=== PATIENT | male | born 1960 | race Caucasian/White ===

== ENCOUNTER 2017-01-23 13:56 | Day surgery (SDC) | payer BC ==
[~2017-01-23] VITALS: Ht 177.8 cm; Wt 120.2 kg
[~2017-01-23 13:56] MED LIST: ADVIL200 MG PO; HUMALOG100 UNIT/2 SC; LYRICA25 MG PO; TIVORBEX20 MG PO; TOUJEO SOL300 UNIT/1 SC
[2017-01-23 14:43] LABS: POINT-OF-CARE METER ID UU14174212
== END 2017-01-23 15:30 | disposition home or self-care (01) ==
LOC: PAIN 13:56 → SDC 14:30 → PAIN 14:30
PROVIDERS: Anesthesiology Pain Medicine
DX: Z53.8 Procedure and treatment not carried out for other reasons (principal)
CPT/HCPCS: 82948; J1030; J2250; J3010; S0020

== ENCOUNTER 2017-01-30 08:26 | Day surgery (SDC) | payer BC ==
[~2017-01-30] VITALS: Ht 177.8 cm; Wt 120.2 kg
[2017-01-30 09:09] LABS: POINT-OF-CARE METER ID UU14174212; POINT-OF-CARE USER ID AHSRSCSLC11
== END 2017-01-30 10:35 | disposition home or self-care (01) ==
LOC: PAIN 08:26 → SDC 09:00 → PAIN 09:00
PROVIDERS: Anesthesiology Pain Medicine
DX: M47.22 Other spondylosis with radiculopathy, cervical region (principal); Z98.1 Arthrodesis status; E11.9 Type 2 diabetes mellitus without complications; Z79.4 Long term (current) use of insulin; I25.2 Old myocardial infarction; J44.9 Chronic obstructive pulmonary disease, unspecified; Z88.1 Allergy status to other antibiotic agents
CPT/HCPCS: 82948; J1030; J2250; J3010; S0020